=== PATIENT | male | born 1980 | race Caucasian/White ===

== ENCOUNTER 2017-04-07 18:36 | Inpatient (IN) | payer MEDICAID, OTHER ==
[~2017-04-07] VITALS: Ht 172.7 cm; Wt 81.3 kg
[2017-04-07 19:28] VITALS: BP 148/65
--- NOTE | 2017-04-07 21:22 | NUR ---
TO ER OF2
[2017-04-07] MEDS ORDERED: KETOROLAC 30 MG/ML VIAL IM ONE (21:55)
--- NOTE | 2017-04-07 22:00 | NUR ---
PATIENT PRESENTS TO ED WITH C/O HEMORRHOIDS . PT DENIES N/V/D; SKIN IS PINK/WARM/DRY; AAOX4 WITH EVEN AND STEADY GAIT; LUNGS CLEAR BL; HR EVEN AND REGULAR; PT DENIES ANY FEVER, CP, SOB, OR COUGH AT THIS TIME; PATIENT STATES PAIN OF 9/10 AT THIS TIME; VSS; PATIENT POSITIONED FOR COMFORT; HOB ELEVATED; BEDRAILS UP X2; BED DOWN. ER MD MADE AWARE OF PT STATUS.
--- NOTE | 2017-04-07 23:04 | NUR ---
moved to bed 6.
[2017-04-07] MEDS ORDERED: NACL 0.9% 1,000 ML IV ONE (23:37)
[2017-04-07] MEDS ORDERED: MORPHINE SULFATE 4 MG/ML SYR IVP ONE (23:40)
[2017-04-07] MEDS ORDERED: ONDANSETRON 4 MG/2 ML VIAL IVP ONE (23:40)
[2017-04-08 00:01] LABS: ANION GAP 14.1 (8-16); CALCIUM 9.5 mg/dL (8.5-10.1); CREATININE 0.9 mg/dL (0.6-1.3); POTASSIUM 4.1 mmol/L (3.5-5.1)
[2017-04-08 00:04] LABS: HEMATOCRIT 46.8 % (36-52); HEMOGLOBIN 15.9 g/dL (12.0-18.0); MEAN CORPUSCULAR HEMOGLOBIN 31 pg (27-31); MEAN CORPUSCULAR HGB CONC 34 g/dL (33-37); MEAN CORPUSCULAR VOLUME 90 fL (80-94); PLATELET COUNT (AUTO) 225 K/uL (140-450); RED BLOOD CELL COUNT(AUTO) 5.19 MIL/uL (4.20-6.10); RED CELL DISTRIBUTION WIDTH 11.8 % (11.6-13.7); WHITE BLOOD COUNT (AUTO) 15.3 K/uL (4.8-10.8)
[2017-04-08 00:09] LABS: BAND % (MANUAL) 2 % (0-8); LYMPHOCYTES % (MANUAL) 18 % (20-46); MONOCYTES % (MANUAL) 5 % (5-12); NEUTROPHILS % (MANUAL) 75 (43-65)
[2017-04-08 00:17] LABS: TOTAL BILIRUBIN 0.8 mg/dL (0.0-1.0); TOTAL PROTEIN, SERUM 8.8 g/dL (6.4-8.2)
[2017-04-08 00:18] LABS: ALBUMIN 4.3 g/dL (3.4-5.0)
--- NOTE | 2017-04-08 00:47 | NUR ---
PT TO CT VIA WC IN STABLE CONDITION
[2017-04-08] MEDS ORDERED: PIPERACILLIN/TAZOBACTAM 3.375 GM in DEXTROSE 5% 50 ML IV ONE (03:15)
[2017-04-08] MEDS ORDERED: metroNIDAZOLE 500 MG/NS PREMIX 100 ML IV ONE (03:15)
[2017-04-08] MEDS ORDERED: MORPHINE SULFATE 4 MG/ML SYR IVP ONE (03:20)
[2017-04-08] MEDS ORDERED: PIPERACILLIN/TAZOBACTAM 3.375 GM VIAL IV ONE (03:27)
[2017-04-08] MEDS ORDERED: ONDANSETRON 4 MG/2 ML VIAL IVP PRN (03:40)
[2017-04-08] MEDS ORDERED: MORPHINE SULFATE 2 MG/ML SYR IVP PRN (03:40)
[2017-04-08] MEDS ORDERED: ACETAMINOPHEN 325 MG TAB PO PRN (03:40)
[2017-04-08] MEDS ORDERED: DOCUSATE SODIUM 100 MG GELCAP PO PRN (03:40)
[2017-04-08 03:53] LABS: INR 1.1 (0.8-1.2); PARTIAL THROMBOPLASTIN TIME 28.1 secs (22-35.6); PROTHROMBIN TIME 10.1 secs (10.8-13.4)
[2017-04-08] MEDS ORDERED: SHARK OIL/PHENYLEPHRINE/COCOA 1 SUPP RC PRN (03:55)
--- NOTE | 2017-04-08 04:00 | NUR ---
Patient will be admitted to care of DR GUZMAN. Admited to TELE. Will go to room 106B. Belongings list completed. Report to ROBERTO KEBEDE.
[2017-04-08 04:12] LABS: MAGNESIUM 2.1 mg/dL (1.8-2.4); PHOSPHORUS 4.6 mg/dL (2.5-4.9); THYROID STIMULATING HORMONE 1.52 uIU/mL (0.34-3.76)
[2017-04-08 05:10] VITALS: BP 132/70
--- NOTE | 2017-04-08 05:10 | NUR ---
ADMITTED A 37M FROM ER. CAME BY HARMONY DUE TO GLUTEAL AREA ABSCESS THAT IS TENDER TO TOUCH AND WITH PAIN X3 DAYS. AAO X4. ON TELE MONITOR. DENIES ANY PAIN AT THIS TIME. PLAN OF CARE DISCUSSED AND VERBALIZED UNDERSTANDING. ORIENTED TO HOSPITAL ROUTINES. SIDE RAILS UP X2. BED ON LOW POSITION. CALL LIGHT PLACED WITHIN EASY REACH. WILL CONTINUE TO MONITOR.
[2017-04-08] MEDS: NACL 0.9% 1,000 ML IV SCH ×3 (05:46→20:30)
--- NOTE | 2017-04-08 07:35 | NUR ---
ENDORSED PT IN STABLE CONDITION TO AM NURSE.
--- NOTE | 2017-04-08 07:36 | NUR ---
RECEIVED SBAR REPORT FROM ROBERTO KEBEDE AT PT BEDSIDE. PT RESTING IN BED. NO S/S OF ACUTE DISTRESS. AAOX4, SAUDI ARABIAN SPEAKING. AMBULATORY. DENIES DISCOMFORT. IV SITE PATENT AND INTACT. MADE AWARE OF UPCOMING PLANS AND PROCEDURES, VERBALIZED UNDERSTANDING. CALL LIGHT WITHIN REACH. BED IN LOWEST POSITION.
[2017-04-08 08:00] VITALS: BP 124/65
--- NOTE | 2017-04-08 09:12 | NUR ---
PATIENT HAS BEEN SCREENED AND CATEGORIZED MODERATE NUTRITION RISK. PATIENT WILL BE SEEN WITHIN 3-5 DAYS OF ADMISSION. 04/10/17-04/12/[address]
[2017-04-08] MEDS ORDERED: PIPERACILLIN/TAZOBACTAM 3.375 GM in DEXTROSE 5% 50 ML IV SCH (10:00)
[2017-04-08] MEDS: LACTOBACILLUS RHAMNOSUS GG 1 EACH CAP PO SCH (10:15)
[2017-04-08] MEDS: PIPER/TAZO 3.375GM/D5W PREMIX 50 ML IV SCH ×2 (11:32→18:07)
[2017-04-08 12:00] VITALS: BP 115/57
[2017-04-08] MEDS: metroNIDAZOLE 500 MG/NS PREMIX 100 ML IV SCH ×2 (14:06→21:12)
--- NOTE | 2017-04-08 14:14 | NUR ---
PATIENT RESTING IN BED. FAMILY AT BEDSIDE. IV SITE PATENT AND INTACT. ATTEMPTED TO CONTACT DR. SINGER CONSULTED PER MD, NO ANSWER AT THIS TIME. PATIENT MAINTAINED ON NPO STATUS.
[2017-04-08 16:00] VITALS: BP 100/55
[2017-04-08 16:55] LABS: BILIRUBIN,URINE NEGATIVE (NEGATIVE); BLOOD, URINE NEGATIVE (NEGATIVE); COLOR,URINE YELLOW (YELLOW); LEUKOCYTE ESTERASE ,URINE NEGATIVE (NEGATIVE); NITRITE, URINE NEGATIVE (NEGATIVE); PH,URINE 6.5 (5.0-9.0); PROTEIN,URINE NEGATIVE (NEGATIVE); UGLUCOSE NEGATIVE (NEGATIVE)
[2017-04-08 16:56] LABS: APPEARANCE,URINE CLEAR (CLEAR)
[2017-04-08 17:01] LABS: AMPHETAMINE, URINE NEG. ng/ml (NEG <=1000); BARBITURATE, URINE NEG. ng/ml (NEG <=200); BENZODIAZEPINE, URINE NEG. ng/mL (NEG <=200); CANNABINOID, URINE NEG. ng/mL (NEG <=50); COCAINE, URINE NEG. ng/mL (NEG <=300); OPIATE, URINE POS. ng/mL (NEG <=2000); PHENCYCLIDINE SCREEN,URINE NEG. ng/mL (NEG <=25)
--- NOTE | 2017-04-08 18:07 | NUR ---
PATIENT SEEN BY DR. WHITMORE AT PT BEDSIDE, MADE AWARE FOR I&D PROCEDURE. FAMILY AT BEDSIDE. MADE AWARE OF CURRENT PLAN OF CARE.
--- NOTE | 2017-04-08 19:33 | NUR ---
ENDORSED PLAN OF CARE TO NIGHT NURSE DELIO AT PT BEDSIDE. NO S/S OF ACUTE DISTRESS NOTED.
--- NOTE | 2017-04-08 19:36 | NUR ---
RECEIVED REPORTS FROM DAY RN. PT RESTING IN BED, FAMILY MEMBERS AT BEDSIDE. A/OX4, NO S/S OF ACUTE DISTRESS NOTED, RESPIRATION EVEN AND UNLABORED, IV INTACT AND PATENT, DENIES PAIN AT THIS TIME. ABSCESS NOTED TO LT GLUTEAL, NO DISCHARGE AND DRAINAGE NOTED, HARD TO TOUCH. CALL LIGHT WITHIN REACH, SAFETY MEASURE ENSURED, WILL CONTINUE TO MONITOR.
[2017-04-08 20:00] VITALS: BP 129/73
--- NOTE | 2017-04-08 20:05 | NUR ---
PT ABLE TO SIGN CONSENT FOR SURGERY . VERBALIZED UNDERSTANDING DEAN OF WOMEN URS[facility]A WITH ID# [id number] ABLE TO EXPLAINED TO PT.
--- NOTE | 2017-04-08 22:00 | NUR ---
ASLEEP. NO S/S OF ANY DISCOMFORT NOTED.
[2017-04-09] VITALS: BP 115/73
--- NOTE | 2017-04-09 00:30 | NUR ---
KEPT PT NPO SINCE AFTER MN FOR SURGERY IN AM. VERBALIZED UNDERSTANDING.
[2017-04-09] MEDS: PIPER/TAZO 3.375GM/D5W PREMIX 50 ML IV SCH ×5 (00:47→23:34)
[2017-04-09] MEDS: NACL 0.9% 1,000 ML IV SCH ×3 (03:49→21:11)
[2017-04-09 04:00] VITALS: BP 101/65
--- NOTE | 2017-04-09 04:00 | NUR ---
NO C/O ANY DISCOMFORT NOR PAIN NOTED.
[2017-04-09] MEDS: metroNIDAZOLE 500 MG/NS PREMIX 100 ML IV SCH ×3 (05:08→20:34)
[2017-04-09 06:52] LABS: BASOPHILS % (AUTO) 0.4 % (0.0-2.0); EOSINOPHILS # (AUTO) 0.2 K/uL (0-0.4); EOSINOPHILS % (AUTO) 1.8 % (0.0-4.0); HEMATOCRIT 42.3 % (36-52); HEMOGLOBIN 14.5 g/dL (12.0-18.0); LYMPHOCYTES # (AUTO) 2.4 K/uL (2.0-11.5); LYMPHOCYTES % (AUTO) 21.5 % (20.5-51.1); MEAN CORPUSCULAR HEMOGLOBIN 31 pg (27-31); MEAN CORPUSCULAR HGB CONC 34 g/dL (33-37); MEAN CORPUSCULAR VOLUME 91 fL (80-94); MONOCYTES % (AUTO) 9.1 % (1.7-9.3); NEUTROPHILS # (AUTO) 7.6 K/uL (1.8-7.7); NEUTROPHILS % (AUTO) 67.2 % (42.2-75.2); PLATELET COUNT (AUTO) 190 K/uL (140-450); RED BLOOD CELL COUNT(AUTO) 4.63 MIL/uL (4.20-6.10); RED CELL DISTRIBUTION WIDTH 11.7 % (11.6-13.7); WHITE BLOOD COUNT (AUTO) 11.2 K/uL (4.8-10.8)
[2017-04-09 07:07] LABS: CARBON DIOXIDE 25.9 mmol/L (21-32); CREATININE 0.9 mg/dL (0.6-1.3); POTASSIUM 3.9 mmol/L (3.5-5.1)
--- NOTE | 2017-04-09 07:15 | NUR ---
ENDORSED PLAN OF CARE TO DAY SHIFT RN. PT IS STABLE. NO S/S OF ACUTE DISTRESS NOTED.
[2017-04-09 07:16] LABS: MAGNESIUM 2.1 mg/dL (1.8-2.4); PHOSPHORUS 4.4 mg/dL (2.5-4.9)
--- NOTE | 2017-04-09 07:16 | NUR ---
RECEIVED SBAR REPORT FROM ROBERTO KEBEDE AT PT BEDSIDE. PT RESTING IN BED. NO S/S OF ACUTE DISTRESS. AAOX4, BELARUSIAN SPEAKING. AMBULATORY. DENIES DISCOMFORT. IV SITE PATENT AND INTACT. MADE AWARE OF UPCOMING PLANS AND PROCEDURES, VERBALIZED UNDERSTANDING. CALL LIGHT WITHIN REACH. BED IN LOWEST POSITION.
[2017-04-09 08:00] VITALS: BP 109/65
[2017-04-09] MEDS: LACTOBACILLUS RHAMNOSUS GG 1 EACH CAP PO SCH (09:07)
--- NOTE | 2017-04-09 11:30 | NUR ---
ABSCESS ON PERIANAL FOUND TO BE OPENED WITH MODERATE TO LARGE AMOUNT OF DRAINAGE. PATIENT CLEANED, PLACED DRY DRESSING GAUZE FOR DRAINAGE. PT C/O IV SITE BOTHERING HIM. REMOVED IV WITH CANULA INTACT. NEW IV STARTED ON RFA #20. PATENT AND INTACT.
[2017-04-09 12:00] VITALS: BP 108/70
--- NOTE | 2017-04-09 14:00 | NUR ---
SPOKE WITH OR, DR. WHITMORE IS STILL AT ANOTHER LOCATION, PATIENT UPDATED WITH PLAN OF CARE. PT RESTING IN BED. AT BEDSIDE. NO S/S OF ACUTE DISTRESS.
--- NOTE | 2017-04-09 14:59 | NUR ---
SPOKE WITH DR. WHITMORE. PATIENT WILL HAVE PROCEDURE AT 1730, PATIENT AND FAMILY MADE AWARE OF UPDATED PLAN.
[2017-04-09 15:43] LABS: HEPATITIS A ANTIBODY IGM Negative (Negative); HEPATITIS B CORE AB TOTAL Negative (Negative); HEPATITIS B CORE, IGM Negative (Negative); HEPATITIS B SURFACE AB Non Reactive (.); HEPATITIS B SURFACE ANTIGEN Negative (Negative); HEPATITIS C VIRUS ANTIBODY <0.1 s/co ratio (0.0-0.9)
[2017-04-09 16:00] VITALS: BP 115/67
--- NOTE | 2017-04-09 17:01 | NUR ---
PATIENT TAKEN TO OR FOR SURGICAL PROCEDURE. NO S/S OF ACUTE DISTRESS.
[2017-04-09] MEDS ORDERED: LABETALOL 100 MG/20 ML VIAL ONE (17:31)
[2017-04-09] MEDS ORDERED: KETAMINE 500 MG/5 ML VIAL ONE (17:45)
[2017-04-09] MEDS ORDERED: MIDAZOLAM 2 MG/2 ML VIAL ONE (17:45)
[2017-04-09] MEDS ORDERED: HYDROmorphone 1 MG/ML AMP IVP PRN (17:50)
[2017-04-09] MEDS ORDERED: ONDANSETRON 4 MG/2 ML VIAL IVP PRN (17:50)
[2017-04-09] MEDS ORDERED: BUPIVACAINE-MPF/EPI 0.5% 30 ML VIAL INJ ONE (17:52)
--- NOTE | 2017-04-09 18:30 | NUR ---
PATIENT RETURNED FROM SURGICAL PROCEDURE. S/P I&D PERIRECTAL ABSCESS PER DR. WHITMORE. PATIENT RETURNED WITH VS WNL. NO S/S OF RESPIRATORY DISTRESS. DENIES DISCOMFORT. AAOX4. FAMILY AT BEDSIDE. CALL LIGHT WITHIN REACH. IV SITE PATENT AND INTACT. WILL CONTINUE TO MONITOR.
--- NOTE | 2017-04-09 19:10 | NUR ---
SBAR REPORT GIVEN TO ROBERTO GARCIA AT PT BEDSIDE. NO S/S OF ACUTE DISTRESS NOTED.
--- NOTE | 2017-04-09 19:30 | NUR ---
RECEIVED REPORT FROM MALIA RN AT BEDSIDE. PT IS ALERT AWAKE ORIENTED X4. MONTENEGRIN SPEAKING ONLY BUT FAMILY AT BEDSIDE WHO CAN UNDERSTAND AND SPEAK SAMMARINESE WELL. INITIAL ASSESSMENT DONE. NO S/S OF RESPIRATORY DISTRESS OR SOB NOTED. NO C/O PAIN OR ANY DISCOMFORT AT THIS TIME. PLAN OF CARE REVIEWED TO PT AND FAMILY AT BEDSIDE AND VERBALIZED UNDERSTANDING AND NEED TO BE REINFORCED. CALL LIGHT WITHIN REACH. WILL CONTINUE TO MONITOR.
[2017-04-10] VITALS: BP 113/71
--- NOTE | 2017-04-10 00:20 | NUR ---
PT IS SLEEPING RIGHT NOW BUT EASILY AROUSABLE. NO S/S OF ANY DISCOMFORT AT THIS TIME. ALL NEEDS ARE ATTENDED. CALL LIGHT WITHIN REACH. WILL CONTINUE TO MONITOR.
[2017-04-10] MEDS: metroNIDAZOLE 500 MG/NS PREMIX 100 ML IV SCH ×3 (04:29→21:07)
--- NOTE | 2017-04-10 05:00 | NUR ---
AM CARE RENDERED. BED LINEN CHANGED. INSTRUCTED PATIENT TO REPOSITION. KEPT CLEAN AND DRY. CALL LIGHT WITHIN REACH. WILL CONTINUE TO MONITOR.
[2017-04-10] MEDS: NACL 0.9% 1,000 ML IV SCH ×3 (05:02→22:30)
[2017-04-10] MEDS: PIPER/TAZO 3.375GM/D5W PREMIX 50 ML IV SCH ×4 (05:03→23:19)
[2017-04-10 07:06] LABS: BASOPHILS # (AUTO) 0.2 K/uL (0.00-0.22); BASOPHILS % (AUTO) 2.6 % (0.0-2.0); EOSINOPHILS # (AUTO) 0.2 K/uL (0-0.4); EOSINOPHILS % (AUTO) 2.3 % (0.0-4.0); HEMOGLOBIN 14.5 g/dL (12.0-18.0); LYMPHOCYTES # (AUTO) 2.5 K/uL (2.0-11.5); LYMPHOCYTES % (AUTO) 27.2 % (20.5-51.1); MEAN CORPUSCULAR HEMOGLOBIN 31 pg (27-31); MEAN CORPUSCULAR HGB CONC 34 g/dL (33-37); MEAN CORPUSCULAR VOLUME 92 fL (80-94); MONOCYTES # (AUTO) 0.8 K/uL (0.8-1.0); MONOCYTES % (AUTO) 8.1 % (1.7-9.3); NEUTROPHILS # (AUTO) 5.6 K/uL (1.8-7.7); NEUTROPHILS % (AUTO) 59.8 % (42.2-75.2); PLATELET COUNT (AUTO) 204 K/uL (140-450); RED BLOOD CELL COUNT(AUTO) 4.68 MIL/uL (4.20-6.10); RED CELL DISTRIBUTION WIDTH 11.6 % (11.6-13.7); WHITE BLOOD COUNT (AUTO) 9.3 K/uL (4.8-10.8)
[2017-04-10 07:23] LABS: ANION GAP 15.9 (8-16); CALCIUM 9.2 mg/dL (8.5-10.1); CARBON DIOXIDE 25.1 mmol/L (21-32); CREATININE 0.9 mg/dL (0.6-1.3)
[2017-04-10 08:00] VITALS: BP 117/74
[2017-04-10] MEDS: LACTOBACILLUS RHAMNOSUS GG 1 EACH CAP PO SCH (09:18)
--- NOTE | 2017-04-10 10:05 | NUR ---
RECEIVED PT ON BED AAOX4. NO SOB NOTED. NO C/O PAIN AT THIS TIME. IV TO RT AC PATENT AND INTACT. CHEST CLEAR. ABDOMEN SOFT, BOWEL SOUNDS PRESENT. GAUZE DRESSING TO LT BUTTOCK, DRY, PT IS S/P I&D ON LEFT GLUTEAL ABSCESS ON 04/09/2017. NO EDEMA NOTED. INSTRUCTED PT TO CALL FOR ASSISTANCE, CALL LIGHT WI THIN REACH, PT VERBALIZED UNDERSTANDING.
--- NOTE | 2017-04-10 12:15 | NUR ---
PT CONSUMED ALMOST 100% OF BREAKFAST AND LUNCH. FOOD TOLERATED WELL.
--- NOTE | 2017-04-10 16:21 | NUR ---
PT RESTING. NO SOB NOTED. NO COMPLAINTS MADE. FAMILY AT THE BEDSIDE. ENDORSE TO VANESSA-ROBERTO FOR CONTINUITY OF CARE.
--- NOTE | 2017-04-10 16:22 | NUR ---
RECEIVED PT REPORT FROM GIRISH MEJIA. PT IS AAOX4 RESTING IN BED WITH FAMILY AT BEDSIDE. PT STATES NO PAIN OR SOB. PT RESTING COMFORTABLY IN BED ON ROOM AIR.
[2017-04-10 17:02] VITALS: BP 109/65
--- NOTE | 2017-04-10 18:45 | NUR ---
PT HAD A BM. DRESSING WAS CHANGED PER WOUND CARE ORDERS.
--- NOTE | 2017-04-10 19:20 | NUR ---
GAVE REPORT TO NIGHT NURSE. PT FAMILY AT BEDSIDE. PT SHOWS NO S/S OF DISTRESS ON ROOM AIR. PT ENDORSED IN STABLE CONDITION.
--- NOTE | 2017-04-10 19:20 | NUR ---
RECEIVED PT AWAKE TALKING TO FAMILY MEMBERS AT BEDSIDE, SAO TOMEAN SPEAKING ONLY, DENIES ANY PAIN, IVF INFUSING WELL, PLAN OF CARE DISCUSSED, CALL LIGHT WITHIN REACH.
--- NOTE | 2017-04-10 21:00 | NUR ---
DUE IV ANTIBIOTIC ADMINISTERED, DRESSING TO LEFT GLUTEAL AREA DRY AND INTACT, ALL NEEDS ATTENDED.
[2017-04-11] VITALS: BP 113/72
--- NOTE | 2017-04-11 | NUR ---
SLEEPING, EASILY AROUSABLE, DENIES ANY PAIN, IV ANTIBIOTIC INFUSING WELL, CONTINUE TO MONITOR CLOSELY.
[2017-04-11] MEDS: NACL 0.9% 1,000 ML IV SCH ×3 (02:05→15:10)
[2017-04-11] MEDS: metroNIDAZOLE 500 MG/NS PREMIX 100 ML IV SCH ×2 (04:28→16:13)
--- NOTE | 2017-04-11 04:30 | NUR ---
PT SLEEPING, EASILY AROUSABLE, DENIES ANY PAIN, DUE FLAGYL IVPB ADMINISTERED, MONITORED CLOSELY.
[2017-04-11] MEDS: PIPER/TAZO 3.375GM/D5W PREMIX 50 ML IV SCH ×3 (05:28→18:00)
--- NOTE | 2017-04-11 05:50 | NUR ---
PT SLEEPING, NO SIGNS OF PAIN, VITAL SIGNS STABLE, MONITORED CLOSELY.
--- NOTE | 2017-04-11 07:12 | NUR ---
PT SLEEPING, NO SIGNS OF DISTRESS, REPORT GIVEN TO ROBERTO MENDEZ FOR CONTINUITY OF CARE.
--- NOTE | 2017-04-11 07:15 | NUR ---
RECEIVED PT REPORT AT BEDSIDE FROM NIGHT NURSE. PT IS AAOX4 AND SHOWS NO S/S OF DISTRESS ON ROOM AIR. IV NOTED ON THE R AC WITH IVF RUNNING. PT HAS NOTED CLEAN DRY AND INTACT DRESSING ON THE LEFT BUTTOCK. PT STATES NO PAIN. BED IS LOWERED WITH CALL LIGHT WITHIN REACH.
[2017-04-11 07:31] LABS: BASOPHILS # (AUTO) 0.1 K/uL (0.00-0.22); BASOPHILS % (AUTO) 1.4 % (0.0-2.0); EOSINOPHILS # (AUTO) 0.3 K/uL (0-0.4); EOSINOPHILS % (AUTO) 3.6 % (0.0-4.0); HEMATOCRIT 44.5 % (36-52); HEMOGLOBIN 14.8 g/dL (12.0-18.0); LYMPHOCYTES # (AUTO) 2.2 K/uL (2.0-11.5); LYMPHOCYTES % (AUTO) 30.5 % (20.5-51.1); MEAN CORPUSCULAR HEMOGLOBIN 31 pg (27-31); MEAN CORPUSCULAR HGB CONC 33 g/dL (33-37); MEAN CORPUSCULAR VOLUME 92 fL (80-94); MONOCYTES # (AUTO) 0.6 K/uL (0.8-1.0); MONOCYTES % (AUTO) 8.3 % (1.7-9.3); NEUTROPHILS # (AUTO) 3.9 K/uL (1.8-7.7); NEUTROPHILS % (AUTO) 56.2 % (42.2-75.2); PLATELET COUNT (AUTO) 224 K/uL (140-450); RED BLOOD CELL COUNT(AUTO) 4.84 MIL/uL (4.20-6.10); RED CELL DISTRIBUTION WIDTH 11.6 % (11.6-13.7); WHITE BLOOD COUNT (AUTO) 7.1 K/uL (4.8-10.8)
[2017-04-11 07:34] LABS: CALCIUM 9.1 mg/dL (8.5-10.1); CREATININE 0.8 mg/dL (0.6-1.3)
[2017-04-11 07:35] LABS: MAGNESIUM 2.2 mg/dL (1.8-2.4); PHOSPHORUS 3.6 mg/dL (2.5-4.9)
[2017-04-11 08:00] VITALS: BP 106/54
[2017-04-11] MEDS: LACTOBACILLUS RHAMNOSUS GG 1 EACH CAP PO SCH (09:27)
--- NOTE | 2017-04-11 09:30 | NUR ---
ADMINISTERED SCHEDULED MEDICATIONS. PT TOLERATED WELL. PT STATES NO PAIN. WILL CONTINUE TO MONITOR.
--- NOTE | 2017-04-11 09:50 | NUR ---
PT HAD A BM. CHANGED DRESSING ORDER.
--- NOTE | 2017-04-11 12:30 | NUR ---
PT ATE LUNCH AND TOLERATED MEAL WELL.
--- NOTE | 2017-04-11 13:50 | NUR ---
ADMINISTERED SCHEDULED MEDICATION. IV IS PATENT AND INTACT.
--- NOTE | 2017-04-11 15:30 | NUR ---
PT HAS VISITORS AT BEDSIDE. PT STATES HE HAS NO PAIN OR SOB. PT IS RESTING COMFORTABLY IN BED.
[2017-04-11 16:00] VITALS: BP 119/64
--- NOTE | 2017-04-11 17:00 | NUR ---
PT SEEN BY DR COLON. PT OKAYED TO DISCHARGE. PT WILL HAVE TO FOLLOW UP WITH HIS PCP WITHIN ONE WEEK AND FOLLOW UP WITH DR. WHITMORE PER MR ORDERS. PT VERBALIZED UNDERSTANDING.
[2017-04-11] MEDS ORDERED: IBUP-2213 PO (17:11)
[2017-04-11] MEDS ORDERED: LACT1.4C PO (17:11)
[2017-04-11] MEDS ORDERED: DOCU-67 PO (17:11)
[2017-04-11] MEDS ORDERED: CLIN150C1 PO (17:11)
--- NOTE | 2017-04-11 18:30 | NUR ---
PT IS S/P I&D OF AN ABSCESS ON THE LEFT BUTTOCK. TOOK PICTURE OF WOUND. WILL PLACE IN CHART.
--- NOTE | 2017-04-11 18:40 | NUR ---
PT HAS BEEN DISCHARGED. ALL DISCHARGE INSTRUCTIONS AND PRESCRIPTIONS GIVEN. PT DRESSING CHANGED AND GIVEN EDUCATION ABOUT DRESSING CHANGES TO AT BEDSIDE. PT GIVEN MATERIALS TO PERFORM DRESSING CHANGES. ALL QUESTIONS ANSWERED. PT AND FAMILY VERBALIZED UNDERSTANDING. ALL BELONGINGS AND PRESCRIPTIONS IN PT POSSESSION. IV DISCONTINUED WITH CANNULA INTACT. WRISTBANDS REMOVED. OFFERED PT WHEELCHAIR, PT REFUSED. PT AMB OUT OF UNIT WITH STEADY GAIT WITH FAMILY AT SIDE. PT IN STABLE CONDITION.
== END 2017-04-11 18:40 | disposition home or self-care (01) | DRG 364 ==
LOC: MED 18:36 → MTU 04-08 03:40
PROVIDERS: ADMIT Family Medicine; ATTEND Family Medicine
PROC: 0J990ZZ Drainage of Buttock Subcutaneous Tissue and Fascia, Open Approach (ICD-10-PCS; principal; 2017-04-09 13:45)
DX: L02.31 Cutaneous abscess of buttock (principal); K61.1 Rectal abscess; K76.0 Fatty (change of) liver, not elsewhere classified; E66.9 Obesity, unspecified; D72.829 Elevated white blood cell count, unspecified; R74.0 Nonspecific elevation of levels of transaminase and lactic acid dehydrogenase [LDH]; R00.0 Tachycardia, unspecified; Z72.89 Other problems related to lifestyle; Z83.3 Family history of diabetes mellitus; Z68.27 Body mass index [BMI] 27.0-27.9, adult
CPT/HCPCS: 36415; 71010; 72193; 76700; 76881; 80048; 80053; 80305; 81003; 82150; 83036; 83605; 83690; 83735; 83880; 84100; 84443; 85025; 85610; 85730; 86704; 86706; 86708; 86709; 86803; 87040; 87070; 87075; 87081; 87086; 87186; 87205; 87340; 93005; 96361; 96365; 96372; 96375; 96376; 99285; J1885; J2250; J2270; J2405; J2543; J3490; J7030; J7060; Q0092; Q9967

== ENCOUNTER 2018-11-02 12:14 | Inpatient (IN) | payer MEDICAID ==
[~2018-11-02] VITALS: Ht 167.6 cm; Wt 81.6 kg
[~2018-11-02 12:14] MED LIST: CLIN150C1 PO; DOCU-299 PO; IBUP-2213 PO; LACT1.4C PO
[2018-11-02 12:22] VITALS: BP 144/86
--- NOTE | 2018-11-02 12:25 | NUR ---
Pt ambulates to bed 6
--- NOTE | 2018-11-02 12:36 | NUR ---
PATIENT PRESENTS TO ED WITH THE CHIEF C/O LEFT CHEST PAIN. PLACED PT ON BEDSIDE MONITOR. SR ON MONITOR. EKG DONE. PT STATES HIS CHEST PAIN STARTED ON October. NOT TAKING ANY MEDICINE FOR PAIN. NO RECENT DOCTOR VISIT FOR CHEST PAIN. PATIENT STATES CONSTANT PAIN OF 8/10 THAT RADIATES TO RIGHT CHEST, JAW AND LEFT ARM. VSS. DENIES N/V/D; SKIN IS PINK/WARM/DRY; AAOX4 WITH EVEN AND STEADY GAIT; LUNGS CLEAR BL; HR EVEN AND REGULAR. NO FEVER, SOB, OR COUGH NOTED AT THIS TIME. SATURATING 98% IN ROOM AIR. PATIENT POSITIONED FOR COMFORT; HOB ELEVATED; BEDRAILS UP X2; BED DOWN. ER MD MADE AWARE OF PT STATUS.
[2018-11-02] MEDS ORDERED: KETOROLAC 30 MG/ML VIAL IVP ONE (12:45)
--- NOTE | 2018-11-02 12:55 | NUR ---
CHEST X-RAY DONE. LAB AT BEDSIDE.
[2018-11-02 13:09] LABS: BASOPHILS # (AUTO) 0.1 K/uL (0.00-0.22); BASOPHILS % (AUTO) 0.8 % (0.0-2.0); EOSINOPHILS # (AUTO) 0.2 K/uL (0-0.4); EOSINOPHILS % (AUTO) 2.4 % (0.0-4.0); HEMATOCRIT 47.1 % (36-52); HEMOGLOBIN 15.9 g/dL (12.0-18.0); LYMPHOCYTES # (AUTO) 2.5 K/uL (2.0-11.5); LYMPHOCYTES % (AUTO) 40.7 % (20.5-51.1); MEAN CORPUSCULAR HEMOGLOBIN 31 pg (27-31); MEAN CORPUSCULAR HGB CONC 34 g/dL (33-37); MEAN CORPUSCULAR VOLUME 93.2 fL (80-94); MONOCYTES # (AUTO) 0.4 K/uL (0.8-1.0); MONOCYTES % (AUTO) 7.2 % (1.7-9.3); NEUTROPHILS % (AUTO) 48.9 % (42.2-75.2); PLATELET COUNT (AUTO) 186 K/uL (140-450); RED BLOOD CELL COUNT(AUTO) 5.06 MIL/uL (4.20-6.10); RED CELL DISTRIBUTION WIDTH 12.9 % (11.6-13.7); WHITE BLOOD COUNT (AUTO) 6.2 K/uL (4.8-10.8)
[2018-11-02 13:28] LABS: MAGNESIUM 2.2 mg/dL (1.8-2.4)
[2018-11-02 13:29] LABS: PROTHROMBIN TIME 10.1 secs (10.8-13.4)
[2018-11-02 13:34] LABS: ALBUMIN 4.3 g/dL (3.4-5.0); ANION GAP 12.4 (8-16); CARBON DIOXIDE 27.4 mmol/L (21-32); CREATININE 0.9 mg/dL (0.7-1.3); POTASSIUM 3.8 mmol/L (3.5-5.1); TOTAL BILIRUBIN 0.9 mg/dL (0.0-1.0)
[2018-11-02 14:03] LABS: D-DIMER < 100 ng/ml (0-400)
[2018-11-02 15:08] LABS: BARBITURATE, URINE NEG. ng/ml (NEG <=200); BENZODIAZEPINE, URINE NEG. ng/mL (NEG <=200); CANNABINOID, URINE NEG. ng/mL (NEG <=50); COCAINE, URINE NEG. ng/mL (NEG <=300); OPIATE, URINE NEG. ng/mL (NEG <=2000); PHENCYCLIDINE SCREEN,URINE NEG. ng/mL (NEG <=25)
--- NOTE | 2018-11-02 16:21 | NUR ---
PHYSICIAN GABRIEL ORDERED AN REPEAT EKG ON PATIENT TO BE DONE AT 1600. VERBAL ORDERS GIVEN BY HIM.
--- NOTE | 2018-11-02 17:08 | NUR ---
DR. RIOS AT BEDSIDE. RE-EVALUATING PT.
[2018-11-02] MEDS ORDERED: ACETAMINOPHEN 325 MG TAB PO PRN (18:00)
[2018-11-02] MEDS ORDERED: DEXT 5% /NACL 0.9% 1,000 ML IV SCH (18:00)
[2018-11-02] MEDS ORDERED: ONDANSETRON 4 MG/2 ML VIAL IM/IVP PRN (18:00)
[2018-11-02] MEDS ORDERED: DOCUSATE SODIUM 100 MG GELCAP PO PRN (18:00)
[2018-11-02] MEDS: NACL 0.9% 1,000 ML IV SCH (18:40)
--- NOTE | 2018-11-02 18:52 | NUR ---
Patient will be admitted to care of DR. NULL. Admited to TELEMETRY. Will go to room 115. Belongings list completed.
[2018-11-02 18:58] LABS: CHOL/HDL RATIO 3.1 (1-4.5); FREE T4 (FREE THYROXINE) 1.16 ng/dL (0.76-1.46); PHOSPHORUS 3.4 mg/dL (2.5-4.9); THYROID STIMULATING HORMONE 1.84 uIU/mL (0.34-3.74)
[2018-11-02 19:05] VITALS: BP 132/69
--- NOTE | 2018-11-02 19:05 | NUR ---
Patient Admited to tele. Transferred to tele room 115 via [facility] on stable condition. Report given to ROBERTO Graham.
--- NOTE | 2018-11-02 19:05 | NUR ---
RECEIVED REPORT FROM FLAVIA MEJIA. PT IS A&OX4. PRIMARILY WELSH SPEAKING. RESPIRATIONS ARE EQUAL AND UNLABORED. DENIES SOB OR CHEST PAIN AT THIS TIME. IV TO LEFT FA 20 G CURRENTLY ON D5NS AND NS WILL CLARIFY ORDER. PT ON CARDIAC DIET. 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 SKIN IS INTACT. PMH:ABSSESS. LUNG SOUNDS ARE CLEAR. PLAN OF CARE DISCUSSED. SAFETY MEASURES ARE IN PLACE. WILL AWAIT FURTHER ORDERS. CALL LIGHT WITHIN REACH.
--- NOTE | 2018-11-02 19:16 | NUR ---
NO C/O PAIN AT THIS TIME. NO VOMUIN Addendum: 11/02/18 at 1916 by YOMI NO C/O PAIN AT THIS YIME. NO VOMITING NOTED. PT RESTING IN BED COMFORTABLY.
[2018-11-02] MEDS: HYDROcodone/APAP 7.5/325 MG 1 TAB PO PRN (20:03)
[2018-11-02] MEDS ORDERED: MULTIVITAMIN-12 10 ML, THIAMINE 100 MG, FOLIC ACID 1 MG, MAGNESIUM SULFATE 50% 2,000 MG... IV ONE ×5 (21:14)
[2018-11-02] MEDS ORDERED: MORPHINE SULFATE 4 MG/ML SYR IVP PRN (21:15)
[2018-11-02] MEDS ORDERED: LORazepam 2 MG/ML VIAL IVP PRN (21:15)
[2018-11-02] MEDS ORDERED: NITROGLYCERIN 0.4 MG TAB SL PRN (21:15)
[2018-11-02 21:49] LABS: APPEARANCE,URINE CLEAR (CLEAR); BILIRUBIN,URINE NEGATIVE (NEGATIVE); BLOOD, URINE NEGATIVE (NEGATIVE); COLOR,URINE YELLOW (YELLOW); LEUKOCYTE ESTERASE ,URINE NEGATIVE (NEGATIVE); NITRITE, URINE NEGATIVE (NEGATIVE); UGLUCOSE NEGATIVE (NEGATIVE)
[2018-11-02] MEDS ORDERED: THIAMINE 200 MG/2 ML VIAL ONE (22:10)
[2018-11-02] MEDS ORDERED: MULTIVITAMIN-12 10 ML VIAL IV ONE (22:10)
--- NOTE | 2018-11-02 22:30 | NUR ---
PT WENT DOWN TO CT ON WHEEL CHAIR PT IN STABLE CONDITION DENIES SOB OR PAIN.
[2018-11-02] MEDS ORDERED: FOLIC ACID 5 MG/ML SYR ONE (22:44)
[2018-11-02] MEDS ORDERED: MAG SULF 2000 MG/WATER PREMIX 50 ML IV ONE (22:46)
--- NOTE | 2018-11-02 23:00 | NUR ---
BANANA BAG NOW INFUSING PER ORDERS. VITAL SIGNS ARE WITHIN NORMAL LIMITS. SAFETY MEASURES ARE IN PLACE. CALL LIGHT WITHIN REACH.
[2018-11-02] MEDS ORDERED: INFLUENZA VIRUS VACCINE QUAD 0.5 ML SYR IMVAC PRN (23:30)
[2018-11-03] VITALS: BP 124/63
--- NOTE | 2018-11-03 02:19 | NUR ---
PT ASLEEP. RESPIRATIONS ARE EQUAL AND UNLABORED. NO DISTRESS NOTED. CALL LIGHT WITHIN REACH.
[2018-11-03 03:55] VITALS: BP 105/73
--- NOTE | 2018-11-03 04:20 | NUR ---
VITAL SIGNS ARE WITHIN NORMAL LIMITS. DENIES ANY SOB OR CHEST PAIN AT THIS TIME. SAFETY MEASURES IN PLACE.
[2018-11-03 06:05] LABS: T4 (THYROXINE) 9.4 ug/dL (4.5-12.0)
[2018-11-03] MEDS: NACL 0.9% 1,000 ML IV SCH (06:30)
--- NOTE | 2018-11-03 07:31 | NUR ---
ENDORSED PATIENT TO DAY SHIFT. PATIENT IN STABLE CONDITION.
--- NOTE | 2018-11-03 07:32 | NUR ---
REPORT RECEIVED FROM COMPLIANCE AUDITOR NURSE, PT AWAKE ALERT, RESTING QUIETLY IN NAD, RESP EVEN UNLABORED ON RA, SKIN WARM DRY COLOR WNL, PT DENIES CHEST PAIN OR DISCOMFORT, PLAN OF CARE REVIEWED, PT VOICES NO IMMEDIATE NEEDS, ALL SAFETY MEASURES IN PLACE, WILL CONTINUE TO MONITOR.
[2018-11-03 07:49] LABS: BASOPHILS # (AUTO) 0.1 K/uL (0.00-0.22); BASOPHILS % (AUTO) 0.7 % (0.0-2.0); EOSINOPHILS # (AUTO) 0.2 K/uL (0-0.4); EOSINOPHILS % (AUTO) 2.9 % (0.0-4.0); HEMATOCRIT 44.3 % (36-52); HEMOGLOBIN 14.7 g/dL (12.0-18.0); LYMPHOCYTES # (AUTO) 3.1 K/uL (2.0-11.5); LYMPHOCYTES % (AUTO) 42.6 % (20.5-51.1); MEAN CORPUSCULAR HEMOGLOBIN 31 pg (27-31); MEAN CORPUSCULAR HGB CONC 33 g/dL (33-37); MEAN CORPUSCULAR VOLUME 93.7 fL (80-94); MONOCYTES # (AUTO) 0.6 K/uL (0.8-1.0); MONOCYTES % (AUTO) 8.3 % (1.7-9.3); NEUTROPHILS # (AUTO) 3.3 K/uL (1.8-7.7); NEUTROPHILS % (AUTO) 45.5 % (42.2-75.2); PLATELET COUNT (AUTO) 171 K/uL (140-450); RED BLOOD CELL COUNT(AUTO) 4.72 MIL/uL (4.20-6.10); RED CELL DISTRIBUTION WIDTH 13.2 % (11.6-13.7); WHITE BLOOD COUNT (AUTO) 7.3 K/uL (4.8-10.8)
[2018-11-03 08:00] VITALS: BP 120/81
[2018-11-03 08:22] LABS: CREATININE 0.9 mg/dL (0.7-1.3)
[2018-11-03] MEDS: HYDROcodone/APAP 7.5/325 MG 1 TAB PO PRN (08:30)
--- NOTE | 2018-11-03 08:55 | NUR ---
PATIENT HAS BEEN SCREENED AND CATEGORIZED MODERATE NUTRITION RISK. PATIENT WILL BE SEEN WITHIN 3-5 DAYS OF ADMISSION. 11/05/18 11/07/[address]
[2018-11-03] MEDS ORDERED: MULTIVITAMIN 1 TAB PO SCH (09:00)
[2018-11-03] MEDS ORDERED: FOLIC ACID 1 MG TAB PO SCH (09:00)
[2018-11-03] MEDS ORDERED: ECOTRIN 81 MG TABEC PO SCH (09:00)
[2018-11-03] MEDS ORDERED: METOPROLOL 25 MG TAB PO SCH (09:00)
[2018-11-03] MEDS ORDERED: THIAMINE 100 MG TAB PO SCH (09:00)
[2018-11-03] MEDS ORDERED: LISINOPRIL 5 MG TAB PO SCH (09:00)
[2018-11-03 12:00] VITALS: BP 111/78
--- NOTE | 2018-11-03 12:05 | NUR ---
PT SITTING UP EATING LUNCH, AT BEDSIDE, PT IN NAD, RESP EVEN UNLABORED, REPORTS NO CHEST PAIN, VSS, WILL CONTINUE TO MONITOR
--- NOTE | 2018-11-03 16:08 | NUR ---
DISCHARGE PAPERWORK GIVEN TO PATIENT. PATIENT IS NEPALESE SPEAKING BUT PREFERS FAMILY MEMBERS AT BEDSIDE TO TRANSLATE. INSTRUCTED PT TO SEE PCP AND BE REFERRED TO DEPARTMENT OPERATIONS MANAGER BY 11/10/18. NO NEW PRESCRIPTIONS GIVEN. INSTRUCTED PT TO SEEK EMERGENCY SERVICES IF CP CONTINUES/WORSENS. FLU VACCINE ADMINISTERED AND TEACHING GIVEN. PT AND FAMILY MEMBERS AT BEDSIDE VERBALIZED COMPLETE UNDERSTANDING OF ALL D/C TEACHING. IV SITE REMOVED WITH MINIMAL BLOOD LOSS AND LUMEN COMPLETELY INTACT. ID BANDS REMOVED. PT TO GET DRESSED AND WILL LEAVE UNIT VIA PRIVATE VEHICLE WITH FAMILY MEMBERS.
[2018-11-03] MEDS ORDERED: ATORVASTATIN 20 MG TAB PO SCH (17:00)
[2018-11-04 06:11] LABS: HEPATITIS A ANTIBODY IGM Negative (Negative); HEPATITIS B CORE AB TOTAL Negative (Negative); HEPATITIS B SURFACE ANTIBODY Non Reactive (.); HEPATITIS B SURFACE ANTIGEN Negative (Negative)
== END 2018-11-03 16:20 | disposition home or self-care (01) | DRG 243 ==
LOC: MED 12:14 → MTU 18:00
PROVIDERS: ADMIT General Practice; ATTEND General Practice
DX: K21.9 Gastro-esophageal reflux disease without esophagitis (principal); E78.2 Mixed hyperlipidemia; F10.239 Alcohol dependence with withdrawal, unspecified; R74.0 Nonspecific elevation of levels of transaminase and lactic acid dehydrogenase [LDH]; Y90.0 Blood alcohol level of less than 20 mg/100 ml; Z79.899 Other long term (current) drug therapy; Z83.3 Family history of diabetes mellitus
CPT/HCPCS: 36415; 71045; 74150; 80048; 80053; 80305; 81003; 82150; 83036; 83690; 83735; 83880; 84100; 84436; 84439; 84443; 84479; 84484; 85025; 85379; 85610; 85730; 86704; 86706; 86708; 86709; 86803; 87081; 87340; 90658; 93005; 96374; 99285; A9153; G0482; J1885; J3411; J3475; J3490; J7042; Q0092

== ENCOUNTER 2021-05-16 13:01 | Emergency (ER) | payer SELFPAY ==
[~2021-05-16] VITALS: Ht 167.6 cm; Wt 81.6 kg
[2021-05-16 13:12] VITALS: BP 143/99
--- NOTE | 2021-05-16 13:16 | NUR ---
Pt wheelchair assisted to bed 9.
--- NOTE | 2021-05-16 13:36 | NUR ---
41 YEAR OLD MALE COMPLAINS OF RECTAL PAIN X 1 DAY. PT STATES HE HAD AN INCISION AND DRAINAGE ON LEFT BUTTOCKS AND HAS HAD PAIN SINCE. PT AOX4, BREATHING EVEN AND UNLABORED, SKIN WARM AND DRY. BED IN LOWEST POSITION, LOCKED, BED RAIL UPX1. PMH - DENIES ALLERGIES - NKA
[2021-05-16] MEDS ORDERED: MORPHINE SULFATE 4 MG/ML SYR IM ONE (13:40)
[2021-05-16] MEDS ORDERED: ACET-8386 PO (13:41)
[2021-05-16] MEDS ORDERED: CEPH-588 PO (13:41)
[2021-05-16] MEDS ORDERED: MORPHINE SULFATE 4 MG/ML SYR ONE (13:41)
[2021-05-16] MEDS ORDERED: SULF-59 PO (13:41)
--- NOTE | 2021-05-16 14:16 | NUR ---
Patient discharged with v/s stable. Written and verbal after care instructions given and explained in korean. Patient alert, oriented and verbalized understanding of instructions. Ambulatory with steady gait. All questions addressed prior to discharge. ID band removed. Patient advised to follow up with PMD. Rx of norco, keflex, bactrim given. Patient educated on indication of medication including possible reaction and side effects. Opportunity to ask questions provided and answered.
[2021-05-16 14:17] VITALS: BP 106/75
== END 2021-05-16 14:16 | disposition home or self-care (01) ==
LOC: MED 13:01
DX: L05.91 Pilonidal cyst without abscess (principal); Z79.899 Other long term (current) drug therapy
CPT/HCPCS: 96372; 99283; J2270